=== PATIENT | male | born 2000 | race Hispanic/Latino ===

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

== ENCOUNTER 2020-01-15 15:15 | Emergency (ER) | payer MEDICAID, OTHER ==
[2020-01-15] MEDS ORDERED: LIDOCAINE HCL 1% 20 ML VIAL ONE (15:47)
[2020-01-15] MEDS ORDERED: TETANUS/DIPHTHERIA TOXOID [ADULT] 0.5 ML VIAL IM ONE (15:47)
== END 2020-01-15 16:50 | disposition home or self-care (01) ==
LOC: EDH 15:15
DX: S51.011A Laceration without foreign body of right elbow, initial encounter (principal); W18.39XA Other fall on same level, initial encounter; Y93.89 Activity, other specified; Y92.098 Other place in other non-institutional residence as the place of occurrence of the external cause; Y99.8 Other external cause status

== ENCOUNTER 2020-04-28 19:17 | Emergency (ER) | payer OTHER ==
[2020-04-28 19:33] LABS: APPEARANCE,URINE Clear (CLEAR); BILIRUBIN,URINE Negative (NEGATIVE); COLOR,URINE Yellow (YELLOW); GLUCOSE, URINE (UA) Negative (NEGATIVE); KETONES,URINE >=160 mg/dL (NEGATIVE); LEUKOCYTE ESTERASE ,URINE Negative (NEGATIVE); NITRATE,URINE Negative (NEGATIVE); OCCULT BLOOD,URINE Negative (NEGATIVE); PROTEIN,URINE POS 1+ mg/dL (NEGATIVE)
[2020-04-28] MEDS ORDERED: KETOROLAC TROMETHAMINE 60 MG/2 ML VIAL ONE (19:40)
[2020-04-28] MEDS ORDERED: CYCLOBENZAPRINE HCL 10 MG TABLET ONE (19:41)
[2020-04-28] MEDS ORDERED: ACETAMINOPHEN EXTRA STRENGTH 500 MG TABLET ONE (19:41)
[2020-04-28 19:52] LABS: AMPHET/METH SCREEN,URINE NEGATIVE (NEGATIVE); BARBITURATE SCREEN, URINE NEGATIVE (NEGATIVE); BENZODIAZEPINES SCREEN,URINE NEGATIVE (NEGATIVE); CANNABINOID SCREEN,URINE POSITIVE (NEGATIVE); COCAINE SCREEN,URINE NEGATIVE (NEGATIVE); OPIATE SCREEN,URINE NEGATIVE (NEGATIVE); PHENCYCLIDINE SCREEN,URINE NEGATIVE (NEGATIVE)
[2020-04-28 20:16] LABS: BACTERIA,URINE Rare /HPF (None Seen); MUCUS,URINE Few LPF (None Seen); RBC,URINE 0-1 /HPF (0-1); SQUAMOUS EPITHELIAL CELL,UR Rare /HPF (0-2)
== END 2020-04-28 20:50 | disposition home or self-care (01) ==
LOC: EDH 19:17
DX: M54.5 Low back pain (principal)
CPT/HCPCS: 72100; 80305; 81001; 96372; 99284; J1885

== ENCOUNTER 2021-04-01 17:17 | Emergency (ER) | payer OTHER ==
[~2021-04-01] VITALS: Ht 170.2 cm; Wt 68.0 kg
[2021-04-01 17:19] VITALS: BP 144/72
[2021-04-01 17:20] VITALS: BP 144/72
== END 2021-04-01 23:08 | disposition left against medical advice (07) ==
LOC: EDH 17:17
DX: R51.9 Headache, unspecified (principal); J02.9 Acute pharyngitis, unspecified; Z53.21 Procedure and treatment not carried out due to patient leaving prior to being seen by health care provider